=== PATIENT | female | born 2000 ===

== ENCOUNTER → 2023-05-10 17:55 | Outpatient (REF) | payer OTHER, SELFPAY | LOC: RAD 17:55 | PROVIDERS: ATTENDING PHYSICIAN Family Medicine | DX: M25.561 Pain in right knee (principal); M25.562 Pain in left knee | CPT/HCPCS: 73564 ==

== ENCOUNTER → 2023-12-13 17:41 | Outpatient (REF) | payer OTHER, SELFPAY | LOC: RAD 17:41 | PROVIDERS: ATTENDING PHYSICIAN Family Medicine | DX: Q76.0 Spina bifida occulta (principal); R22.2 Localized swelling, mass and lump, trunk | CPT/HCPCS: 72110 ==

== ENCOUNTER → 2023-12-30 13:29 | Outpatient (REF) | payer OTHER, SELFPAY | LOC: RSP 13:29 | PROVIDERS: ATTENDING PHYSICIAN Family Medicine | DX: R06.2 Wheezing (principal) | CPT/HCPCS: 94727; 94729; 88738; 94010 ==

== ENCOUNTER 2024-01-13 15:43 | Outpatient (RCR) | payer OTHER, SELFPAY | END 2024-01-13 23:59 | disposition home or self-care (01) | LOC: RPT 15:43 | PROVIDERS: ATTENDING PHYSICIAN Internal Medicine; PRIMARYCARE PHYSICIAN Family Medicine | DX: K59.00 Constipation, unspecified (principal); K59.4 Anal spasm; M62.89 Other specified disorders of muscle; M25.561 Pain in right knee; Z73.6 Limitation of activities due to disability | CPT/HCPCS: 97110; 97161; 97164; 97530 ==

== ENCOUNTER 2024-02-14 06:29 | Outpatient (RCR) | payer OTHER, SELFPAY | END 2024-02-14 23:59 | disposition home or self-care (01) | LOC: RPT 06:29 | PROVIDERS: ATTENDING PHYSICIAN Internal Medicine; PRIMARYCARE PHYSICIAN Family Medicine | DX: K59.00 Constipation, unspecified (principal); M62.89 Other specified disorders of muscle; K59.4 Anal spasm; M25.561 Pain in right knee; Z73.6 Limitation of activities due to disability | CPT/HCPCS: 97110; 97112 ==

== ENCOUNTER 2024-02-29 17:03 | Outpatient (RCR) | payer OTHER, SELFPAY | END 2024-02-29 23:59 | disposition home or self-care (01) | LOC: RPT 17:03 | PROVIDERS: ATTENDING PHYSICIAN Internal Medicine; PRIMARYCARE PHYSICIAN Family Medicine | DX: K59.00 Constipation, unspecified (principal); M62.89 Other specified disorders of muscle; K59.4 Anal spasm; M25.561 Pain in right knee; Z73.6 Limitation of activities due to disability; R10.2 Pelvic and perineal pain | CPT/HCPCS: 97110; 97112 ==

== ENCOUNTER → 2024-09-07 07:53 | Outpatient (REF) | payer OTHER, SELFPAY | LOC: PNTC 07:53 | PROVIDERS: ATTENDING PHYSICIAN Student in an Organized Health Care Education/Training Program | DX: O99.210 Obesity complicating pregnancy, unspecified trimester (principal); O35.08X0 Maternal care for (suspected) central nervous system malformation or damage in fetus, spina bifida, not applicable or unspecified | CPT/HCPCS: 76805 ==

== ENCOUNTER → 2024-10-05 07:57 | Outpatient (REF) | payer OTHER, SELFPAY | LOC: PNTC 07:57 | PROVIDERS: ATTENDING PHYSICIAN Student in an Organized Health Care Education/Training Program | DX: O35.08X0 Maternal care for (suspected) central nervous system malformation or damage in fetus, spina bifida, not applicable or unspecified (principal); O99.210 Obesity complicating pregnancy, unspecified trimester | CPT/HCPCS: 76805; 76811; 76817 ==

== ENCOUNTER 2025-01-05 16:53 | Observation (INO) | payer OTHER, SELFPAY ==
[2025-01-05 17:14] VITALS: BP 128/68; BMI 41.9
[2025-01-05 17:47] LABS: Hematocrit 38.1 % (37.0-47.0); Hemoglobin 13.3 g/dL (12.0-16.0); Mean Corp Hgb Conc. 34.9 g/dL (33.0-37.0); Mean Corpuscular Volume 85.6 fL (81.0-99.0); Platelet Count 173 10^3/uL (130-400); Red Cell Dist. Width 13.4 % (11.5-14.5)
[2025-01-05 17:54] LABS: Urine Character Cloudy (Clear)
[2025-01-05] MEDS: LR 1000 IV (18:30)
[2025-01-05 18:36] LABS: Urine Red Blood Cell 80-90 /HPF (0-2); Urine Urothelial Cell 0-2 /LPF (FEW); Urine White Cell 21-25 /HPF (0-5)
[2025-01-05 18:41] LABS: ALT (SGPT) 18 U/L (0-35); AST (SGOT) 18 U/L (14-36); Albumin 3.9 g/dl (3.5-5.0); Alkaline Phosphatase 307 U/L (38-126); Blood Urea Nitrogen 7 mg/dl (7-17); Calcium 9.5 mg/dl (8.4-10.2); Carbon Dioxide 19 mmol/L (22-30); Chloride 109 mmol/L (98-107); Estimated Creatinine Clearance > 125 ml/min; Glucose 72 mg/dl (70-99); Potassium 4.1 mmol/L (3.5-5.1); Sodium 137 mmol/L (135-145); Total Protein 7.0 g/dl (6.3-8.2); eGFR > 60.00
[2025-01-05] MEDS: AMOXIL 500 MG PO (19:17)
== END 2025-01-05 20:15 | disposition home or self-care (01) ==
LOC: LDRP 16:53
PROVIDERS: ADMITTING PHYSICIAN Obstetrics & Gynecology; FAMILY PHYSICIAN Family Medicine
DX: O26.893 Other specified pregnancy related conditions, third trimester (principal); Z3A.33 33 weeks gestation of pregnancy; R10.20 Pelvic and perineal pain unspecified side; R10.9 Unspecified abdominal pain; R39.15 Urgency of urination; R35.0 Frequency of micturition; Q05.9 Spina bifida, unspecified; K58.9 Irritable bowel syndrome, unspecified; J45.909 Unspecified asthma, uncomplicated
CPT/HCPCS: 80053; 81003; 81015; 82570; 84156; 85027; 87077; 87086; 87186; G0378

== ENCOUNTER → 2025-01-18 11:47 | Outpatient (REF) | payer OTHER, SELFPAY | LOC: PNTC 11:47 | PROVIDERS: ATTENDING PHYSICIAN Student in an Organized Health Care Education/Training Program | DX: O99.213 Obesity complicating pregnancy, third trimester (principal); Q76.0 Spina bifida occulta; J45.22 Mild intermittent asthma with status asthmaticus | CPT/HCPCS: 59025; 76815 ==

== ENCOUNTER 2025-01-21 05:57 | Observation (INO) | payer OTHER, SELFPAY ==
[2025-01-21 06:05] VITALS: BMI 41.9
[2025-01-21 06:34] VITALS: BP 130/77
[2025-01-21 06:46] LABS: Hematocrit 39.6 % (37.0-47.0); Hemoglobin 13.1 g/dL (12.0-16.0); Mean Corp Hgb Conc. 33.1 g/dL (33.0-37.0); Mean Corpuscular Volume 89.0 fL (81.0-99.0); Nucleated Red Blood Cells % 0 %; Platelet Count 194 10^3/uL (130-400); Red Cell Dist. Width 13.9 % (11.5-14.5)
[2025-01-21 06:53] LABS: Urine Character Slightly Cloudy (Clear)
[2025-01-21 07:07] LABS: ALT (SGPT) 18 U/L (0-35); AST (SGOT) 18 U/L (14-36); Albumin 3.6 g/dl (3.5-5.0); Alkaline Phosphatase 293 U/L (38-126); Blood Urea Nitrogen 9 mg/dl (7-17); Calcium 9.4 mg/dl (8.4-10.2); Carbon Dioxide 20 mmol/L (22-30); Chloride 108 mmol/L (98-107); Estimated Creatinine Clearance > 125 ml/min; Glucose 94 mg/dl (70-99); Potassium 3.9 mmol/L (3.5-5.1); Sodium 132 mmol/L (135-145); Total Protein 6.8 g/dl (6.3-8.2); eGFR > 60.00
[2025-01-21 07:08] LABS: Urine Squamous Cell 0-2 /LPF (Few); Urine White Cell >100 /HPF (0-5)
[2025-01-21 07:09] LABS: Urine Red Blood Cell 50-60 /HPF (0-2)
[2025-01-21] MEDS: LR 500 IV (08:15)
[2025-01-21] MEDS: NSS 1000 IV (09:50)
[2025-01-21] MEDS: ANCEF 10 IV (09:50)
[2025-01-21] MEDS: ANCEF 5 IV (18:01)
[2025-01-22] MEDS: ANCEF 5 IV ×2 (02:02→10:08)
[2025-01-22 04:55] LABS: Hematocrit 37.2 % (37.0-47.0); Hemoglobin 12.1 g/dL (12.0-16.0); Mean Corp Hgb Conc. 32.5 g/dL (33.0-37.0); Mean Corpuscular Volume 91.0 fL (81.0-99.0); Nucleated Red Blood Cells % 0 %; Platelet Count 182 10^3/uL (130-400); Red Cell Dist. Width 14.0 % (11.5-14.5)
[2025-01-22 05:13] LABS: Blood Urea Nitrogen 8 mg/dl (7-17); Calcium 8.9 mg/dl (8.4-10.2); Carbon Dioxide 23 mmol/L (22-30); Chloride 107 mmol/L (98-107); Estimated Creatinine Clearance > 125 ml/min; Glucose 109 mg/dl (70-99); Potassium 3.9 mmol/L (3.5-5.1); Sodium 131 mmol/L (135-145); eGFR > 60.00
== END 2025-01-22 13:38 | disposition home or self-care (01) ==
LOC: LDRP 05:57
PROVIDERS: ADMITTING PHYSICIAN Obstetrics & Gynecology
DX: O23.43 Unspecified infection of urinary tract in pregnancy, third trimester (principal); N39.0 Urinary tract infection, site not specified; B96.20 Unspecified Escherichia coli [E. coli] as the cause of diseases classified elsewhere; Z3A.35 35 weeks gestation of pregnancy; R10.9 Unspecified abdominal pain; M54.9 Dorsalgia, unspecified; K58.9 Irritable bowel syndrome, unspecified; R11.0 Nausea; J45.909 Unspecified asthma, uncomplicated; Q76.0 Spina bifida occulta; Z28.310 Unvaccinated for COVID-19; Z87.440 Personal history of urinary (tract) infections; Z79.51 Long term (current) use of inhaled steroids
CPT/HCPCS: 59025; 76770; 80048; 80053; 81003; 81015; 85025; 87070; 87077; 87086; 87186; G0378

== ENCOUNTER → 2025-01-23 15:43 | Outpatient (REF) | payer OTHER, SELFPAY | LOC: PAVMRI 15:43 | PROVIDERS: ATTENDING PHYSICIAN Obstetrics & Gynecology; FAMILY PHYSICIAN Nurse Practitioner Acute Care | DX: Q76.0 Spina bifida occulta (principal) | CPT/HCPCS: 72148 ==

== ENCOUNTER → 2025-01-25 15:06 | Outpatient (REF) | payer OTHER, SELFPAY | LOC: PNTC 15:06 | PROVIDERS: ATTENDING PHYSICIAN Student in an Organized Health Care Education/Training Program | DX: O99.213 Obesity complicating pregnancy, third trimester (principal); Q76.0 Spina bifida occulta; O99.891 Other specified diseases and conditions complicating pregnancy; J45.909 Unspecified asthma, uncomplicated | CPT/HCPCS: 59025 ==

== ENCOUNTER → 2025-02-01 08:23 | Outpatient (REF) | payer OTHER, SELFPAY | LOC: PNTC 08:23 | PROVIDERS: ATTENDING PHYSICIAN Student in an Organized Health Care Education/Training Program | DX: O99.210 Obesity complicating pregnancy, unspecified trimester (principal); O99.519 Diseases of the respiratory system complicating pregnancy, unspecified trimester; O35.08X0 Maternal care for (suspected) central nervous system malformation or damage in fetus, spina bifida, not applicable or unspecified | CPT/HCPCS: 59025; 76815 ==

== ENCOUNTER → 2025-02-08 16:20 | Outpatient (REF) | payer OTHER, SELFPAY | LOC: PNTC 16:20 | PROVIDERS: ATTENDING PHYSICIAN Student in an Organized Health Care Education/Training Program | DX: O99.213 Obesity complicating pregnancy, third trimester (principal); Q05.9 Spina bifida, unspecified; J45.20 Mild intermittent asthma, uncomplicated | CPT/HCPCS: 59025 ==

== ENCOUNTER → 2025-02-12 11:16 | Outpatient (REF) | payer OTHER, SELFPAY | LOC: PNTC 11:16 | PROVIDERS: ATTENDING PHYSICIAN Student in an Organized Health Care Education/Training Program | DX: O99.213 Obesity complicating pregnancy, third trimester (principal); O99.891 Other specified diseases and conditions complicating pregnancy; O35.08X0 Maternal care for (suspected) central nervous system malformation or damage in fetus, spina bifida, not applicable or unspecified | CPT/HCPCS: 59025; 76815 ==

== ENCOUNTER 2025-02-13 16:04 | Observation (INO) | payer OTHER, SELFPAY ==
[2025-02-13 16:36] VITALS: BP 121/72; BMI 44.0
== END 2025-02-13 19:16 | disposition home or self-care (01) ==
LOC: LDRP 16:04
PROVIDERS: ADMITTING PHYSICIAN Obstetrics & Gynecology
DX: O47.1 False labor at or after 37 completed weeks of gestation (principal); Z3A.39 39 weeks gestation of pregnancy; Q76.0 Spina bifida occulta; J45.909 Unspecified asthma, uncomplicated; K58.9 Irritable bowel syndrome, unspecified; O99.213 Obesity complicating pregnancy, third trimester; G43.909 Migraine, unspecified, not intractable, without status migrainosus; G89.29 Other chronic pain; M54.9 Dorsalgia, unspecified; Z28.310 Unvaccinated for COVID-19
CPT/HCPCS: 36415; 86850; 86900; 86901; G0378

== ENCOUNTER 2025-02-18 00:45 | Inpatient (IN) | payer OTHER, SELFPAY ==
[2025-02-18 01:01] VITALS: BP 141/81; BMI 44.0
[2025-02-18] MEDS: LR 1000 IV ×2 (02:01→04:36)
[2025-02-18 02:07] LABS: Hematocrit 39.1 % (37.0-47.0); Hemoglobin 13.2 g/dL (12.0-16.0); Mean Corp Hgb Conc. 33.8 g/dL (33.0-37.0); Mean Corpuscular Volume 87.3 fL (81.0-99.0); Nucleated Red Blood Cells % 0 %; Platelet Count 200 10^3/uL (130-400); Red Cell Dist. Width 15.0 % (11.5-14.5)
[2025-02-18 02:39] LABS: ALT (SGPT) 16 U/L (0-35); AST (SGOT) 16 U/L (14-36); Albumin 3.6 g/dl (3.5-5.0); Alkaline Phosphatase 267 U/L (38-126); Blood Urea Nitrogen 10 mg/dl (7-17); Calcium 9.4 mg/dl (8.4-10.2); Carbon Dioxide 21 mmol/L (22-30); Chloride 107 mmol/L (98-107); Estimated Creatinine Clearance > 125 ml/min; Glucose 96 mg/dl (70-99); Potassium 4.0 mmol/L (3.5-5.1); Sodium 134 mmol/L (135-145); Total Protein 6.6 g/dl (6.3-8.2); eGFR > 60.00
[2025-02-18] MEDS: SUBLIMAZE 100 MCG EPIDURAL (02:58)
[2025-02-18] MEDS: FENTANYL/BUPIVACAINE 100 EPIDURAL ×2 (02:59→10:35)
[2025-02-18] MEDS: PITOCIN 30 UNITS/NSS 500 ML IV (10:36)
[2025-02-18] MEDS: XYLOCAINE-MPF 1% VIAL 30 ML INFIL (12:26)
[2025-02-18] MEDS: TRANEXAMIC ACID 100 IV (12:30)
[2025-02-18] MEDS: CYTOTEC 800 MCG RECTAL (12:32)
[2025-02-18] MEDS: COLACE 100 MG PO (20:00)
[2025-02-18] MEDS: MOTRIN 600 MG PO (23:27)
[2025-02-19 04:41] LABS: Hematocrit 34.2 % (37.0-47.0); Hemoglobin 11.2 g/dL (12.0-16.0)
[2025-02-19] MEDS: COLACE 100 MG PO ×2 (07:56→19:43)
[2025-02-19] MEDS: PRENATAL PLUS 1 TABLET PO (07:56)
[2025-02-19] MEDS: MOTRIN 600 MG PO ×2 (08:04→19:44)
[2025-02-20] MEDS: COLACE 100 MG PO (08:34)
[2025-02-20] MEDS: MOTRIN 600 MG PO (08:34)
[2025-02-20] MEDS: PRENATAL PLUS 1 TABLET PO (08:34)
[2025-02-20 15:09] LABS: Syphilis/T. pallidum Ab Reflex Negative (Negative)
== END 2025-02-20 14:54 | disposition home or self-care (01) | DRG 807 ==
LOC: LDRP 00:45
PROVIDERS: ADMITTING PHYSICIAN Student in an Organized Health Care Education/Training Program
PROC: 10907ZC Drainage of Amniotic Fluid, Therapeutic from Products of Conception, Via Natural or Artificial Opening (ICD-10-PCS; 2025-02-18)
PROC: 0KQM0ZZ Repair Perineum Muscle, Open Approach (ICD-10-PCS; 2025-02-18)
PROC: 10E0XZZ Delivery of Products of Conception, External Approach (ICD-10-PCS; 2025-02-18)
DX: O13.4 Gestational [pregnancy-induced] hypertension without significant proteinuria, complicating childbirth (principal); Z37.0 Single live birth; Z3A.39 39 weeks gestation of pregnancy; O70.1 Second degree perineal laceration during delivery
CPT/HCPCS: 80053; 82570; 84156; 85014; 85018; 85025; 86780; 86850; 86900; 86901